=== PATIENT | male | born 1950 | race Caucasian/White ===

== ENCOUNTER 2023-06-15 00:17 | Inpatient (IN) | payer MEDICARE, SELFPAY ==
[2023-06-15] VITALS (10 sets, daily range): BP systolic 106–144; BP diastolic 48–80; PULSE 94–116; RESP 15–24; TEMP 36.4–36.7; O2SAT 96–98
--- NOTE | ~2023-06-15 | US_ITS ---
US scrotum doppler INDICATION: Left testicular trauma. TECHNIQUE: Testicular sonogram utilizing grayscale and color Doppler FINDINGS: The testes are normal in size and appearance. No focal lesions are seen. The right testes measures 5.6 x 2 x 2.5 cm centimeters, and the left testis measures 4.9 x 2.4 x 3 cm cm. There is inc reased vascularity in the left testicle and epididymis which appears enlarged, consistent with epidid ymoorchitis. No discrete testicular mass. There is a right epididymal cyst measuring 11 mm. There is moderate left and small right hydroceles. IMPRESSION: 1. Enlarged heterogeneous left testicle and epididymis with increased vascularity, suspicious for ep ididymoorchitis. No discrete testicular mass. 2: Bilateral hydroceles, left greater than right. Reviewed, dictated and finalized at location A. IMPRESSION: 1. Enlarged heterogeneous left testicle and epididymis with increased vascular ity, suspicious for epididymoorchitis. No discrete testicular mass. 2: Bilateral hydroceles, left greater than right.
--- NOTE | ~2023-06-15 | US_ITS ---
EXAMINATION: US renal BI DATE: 06/17/2023 10:01 INDICATION: Bilateral hydronephrosis. TECHNIQUE: Multiple ultrasound grayscale images of the kidneys were obtained. COMPARISON: CT abdomen and pelvis 06/15/2023 FINDINGS: The right kidney measures 12.1 x 4.7 x 4.9 cm. The left kidney measures 13.5 x 7.0 x 7.9 cm. The kidn eys demonstrate normal parenchymal echogenicity. There is mild left hydronephrosis. The bladder is de compressed by a King catheter. IMPRESSION: 1. Mild left hydronephrosis. Reviewed, dictated and finalized at location E.
--- NOTE | ~2023-06-15 | US_ITS ---
US renal BI 06/15/2023 21:35 Procedure: Realtime transabdominal ultrasound of the kidneys and bladder. Indication: Renal insufficiency. Comparison: CT dated 06/15/2023 Findings: Renal echotexture is normal bilaterally without contour deforming mass or renal calculus. T here is bilateral hydronephrosis. The right kidney measures 12.9 cm and left kidney measures 13.9 cm. There is King catheter in the bladder. Impression: 1: Bilateral hydronephrosis. Reviewed, dictated and finalized at location A. Impression: 1: Bilateral hydronephrosis.
--- NOTE | ~2023-06-15 | XR_ITS ---
EXAMINATION: XR chest 1V portable DATE: 06/15/2023 01:58 INDICATION: Weakness. TECHNIQUE: A single frontal view of the chest was obtained. COMPARISON: CT abdomen and pelvis 06/15/2023 FINDINGS: There is no pneumonia, pleural effusion, or pneumothorax. The heart size is normal. IMPRESSION: 1. No acute cardiopulmonary disease. Reviewed, dictated and finalized at location E.
--- NOTE | ~2023-06-15 | CT_ITS ---
EXAMINATION: CT abdomen pelvis wo con DATE: 06/15/2023 04:42 INDICATION: Urinary tract infection. TECHNIQUE: Computed tomography (CT) of the abdomen and pelvis was performed without intravenous contr ast. Automated exposure control and iterative reconstruction technique were employed. The dose-length product was 1361.28 mGy-cm. COMPARISON: None. FINDINGS: The visualized portions of the lung bases demonstrate mild scarring in paraspinal right low er lobe. No pleural effusion. The heart size is normal. No pericardial effusion. There is a small sli ding hiatal hernia. A calcification in the liver is consistent with old granulomatous disease. The ga llbladder is absent. The spleen, pancreas, adrenal glands, and right kidney are normal. There is mild right hydroureter. There is mild left hydronephrosis and hydroureter. There is no urolithiasis. Blad mahsa wall thickening is noted. The King catheter balloon is in the prosthetic urethra. The prostate i s severely enlarged. There is diverticulosis of the colon without evidence of diverticulitis. There a re no dilated loops of bowel. The appendix is normal. There are no pathologically enlarged lymph node s. There is no free intraperitoneal fluid. There is a small right inguinal hernia containing fat. The re is severe lumbar spondylosis. IMPRESSION: 1. King catheter balloon in the prosthetic urethra. 2. Diffuse bladder wall thickening, which may be secondary to chronic outlet obstruction from the sev erely enlarged prostate. 3. Mild right hydroureter. Mild left hydronephrosis and hydroureter. 4. Small sliding hiatal hernia. Reviewed, dictated and finalized at location E. IMPRESSION: 1. King catheter balloon in the prosthetic urethra. 2. Diffuse bladder wall thickening, which may be secondary to chronic outlet ob struction from the severely enlarged prostate. 3. Mild right hydroureter. Mild left hydronephrosis and hydroureter. 4. Small sliding hiatal hernia.
--- NOTE | ~2023-06-15 | CT_ITS ---
EXAMINATION: CT brain wo con DATE: 06/15/2023 03:33 INDICATION: Head injury. TECHNIQUE: Computed tomography (CT) of the head was performed without intravenous contrast. The mA wa s adjusted according to patient size. Iterative reconstruction technique was employed. The dose-lengt h product was 756.67 mGy-cm. COMPARISON: None FINDINGS: There are scattered areas of low attenuation in the cerebral white matter. There is no intr acranial hemorrhage, acute infarction, or abnormal intracranial mass lesion. The ventricles are ivet l in size. The mastoid air cells are normal. There is mild mucosal thickening in the paranasal sinuse s. There are likely changes of ocular lens replacement surgeries. IMPRESSION: 1. Moderate nonspecific cerebral white matter disease, which likely represents chronic small vessel i schemic disease. Reviewed, dictated and finalized at location E. IMPRESSION: 1. Moderate nonspecific cerebral white matter disease, which likely represents chronic small vessel ischemic disease.
--- NOTE | 2023-06-15 01:17 | ECG_ITS ---
Measurements Intervals Angela Rate: 106 P: -10 CT: 168 QRS: -40 QRSD: 103 T: 57 QT: 328 QTc: 437 Interpretive Statements SINUS TACHYCARDIA WITH OCCASIONAL SUPRAVENTRICULAR PREMATURE COMPLEXES POSSIBLE LEFT ATRIAL ENLARGEMENT [-0.1mV P WAVE IN V1/V2] MARKED LEFT AXIS DEVIATION [QRS AXIS < -30] POSSIBLE INFERIOR MYOCARDIAL INFARCTION , PROBABLY OLD WITH POSTERIOR EXTENSION [30 ms Q WAVE IN II/aVFPROMINENT R WAVE IN V1/ ABNORMAL ECG NO PREVIOUS ECG AVAILABLE FOR COMPARISON Electronically Signed On 06-15-2023 8:51:36 CDT by Major Davenport M.D.
[2023-06-15 01:50] LABS: Basophils Percent Auto 0.2 % (0.2-1.2); Eosinophils Absolute Auto 0.1 K/mm3 (0-0.3); Eosinophils Percent Auto 0.4 % (0-4.4); Hematocrit 30.1 % (42.0-52.0); Hemoglobin 9.6 g/dL (14.0-18.0); Immature Granulocyte Absolute 0.09 K/mm3 (0.00-0.031); Immature Granulocyte Percent A 0.5 % (0-0.5); Lymphocytes Absolute Auto 2.26 K/mm3 (0.9-3.2); Lymphocytes Percent Auto 13.7 % (18.3-44.2); Mean Corpuscular HGB Conc 31.9 g/dl (32-36); Mean Corpuscular Hemoglobin 27.8 pg (26-34); Mean Corpuscular Volume 87.2 fl (80-100); Mean Platelet Volume 8.9 fl (7.4-10.4); Monocytes Absolute Auto 1.4 K/mm3 (0.1-0.6); Monocytes Percent Auto 8.3 % (2.6-8.5); Neutrophils Absolute Auto 12.6 K/mm3 (1.3-6.7); Neutrophils Percent Auto 76.9 % (45.5-73.1); Platelet Count Result 379 k/mm3 (150-375); Red Blood Count 3.45 M/mm3 (4.6-6.20); Red Cell Distribution Width 13.7 % (11.5-14.5); White Blood Count 16.5 K/mm3 (4.5-10.0)
[2023-06-15 02:03] LABS: Alanine Aminotransferase 16 U/L (6-50); Albumin Level 3.8 g/dL (3.5-5.1); Alkaline Phosphatase 111 U/L (38-126); Anion Gap 8 mmol/L (8-16); Aspartate Amino Transferase 24 U/L (17-59); Bilirubin,Total 0.7 mg/dL (0.2-1.3); Blood Urea Nitrogen 21 mg/dL (9-20); Calcium 9.4 mg/dL (8.4-10.2); Carbon Dioxide 28 mmol/L (22-30); Chloride 98 mmol/L (98-107); Estimated Glomerular Filt Rate 40; Glucose 165 mg/dL (65-110); Potassium 3.6 mmol/L (3.4-5.0); Sodium 134 mmol/L (137-145)
[2023-06-15 02:14] LABS: Troponin I < 0.012 ng/mL (0.000-0.034)
[2023-06-15 02:15] LABS: NT Pro B Type Natriuretic Pept 512 pg/mL (19.9-100); Troponin I < 0.012 ng/mL (0.000-0.034)
[2023-06-15 02:16] LABS: Influenza A QL RT-PCR Negative (Negative); Influenza B QL RT-PCR Negative (Negative); RSV RNA, RT-PCR Negative (Negative); SARS-CoV-2 RNA PCR Negative (Negative)
[2023-06-15 02:28] LABS: Appearance Urine Turbid (Clear); Bacteria Urine 1+ /hpf; Bilirubin Urine Negative (Negative); Blood Urine 2+ (Negative); Color Urine Yellow (Yellow); Glucose Urine UA Negative (Negative); Ketones Urine Negative (Negative); Leukocyte Esterase Ur 3+ LEU/UL (Negative); Need Manual Microscopic Reviewed; Nitrate Urine Positive (Negative); Non Pathogenic Casts 0-2; Protein Urine 2+ mg/dL (Negative); RBC Urine 0-2 /hpf (0-2); Specific Grav Ur 1.009 (1.001-1.035); Squamous Epithelial Cell Urine None seen /hpf (Few); Urobilinogen Urine 0.2 mg/dL (<2.0); WBC Clumps Urine Present /HPF; WBC Urine >100 /hpf; pH Urine 6.5 (5.0-9.0)
[2023-06-15 02:29] LABS: Add Urine Microscopic? YES
--- NOTE | 2023-06-15 02:40 | ED.FALL ---
HPI - Fall General Chief Complaint: Fall Stated Complaint: syncope Time Seen by Provider: 06/15/23 00:51 History of Present Illness HPI Narrative: Patient presents to the emergency department after 2 falls at home today. He states he has been weaker than normal. Patient lives alone and uses a walker at baseline. He was leaning forward to get something off of the table when he fell onto the ground. EMS assisted him back and then it happened a second time. The second time he hit his head on the walker. Patient denies current headache. Denies seizure activity. Denies loss of consciousness. Also denies any other injuries. He is primarily concerned with the increased weakness. At baseline he would not expect that he would be able to get off the floor but he is concerned that he fell to begin with Review of Systems Review of Systems: Negative except what is documented in the HPI Exam Narrative: GENERAL: Well-appearing, well-nourished, and in no acute distress. HEAD: Normocephalic, atraumatic. EYES: PERRLA and EOMI. ENT: Nares clear, no rhinorrhea or epistaxis. Mucous membranes moist. NECK: Supple. CHEST: Clear to auscultation. No respiratory distress. HEART: Regular rate and rhythm. ABDOMEN: Soft, nontender, nondistended. EXTREMITIES: Normal range of motion. No edema. SKIN: Warm, dry, no rash. NEURO: No focal deficits. Alert and oriented x3. PSYCH: Normal mood and affect. Course Course Emergency Course: Differential diagnosis includes but not limited to electrolyte abnormality, dehydration, cardiac etiology, infection Vital Signs Vital signs: Vital Signs Temperature 36.7 C 06/15/23 00:28 Pulse Rate 110 H 06/15/23 00:28 Respiratory Rate 15 06/15/23 00:28 Blood Pressure 106/48 L 06/15/23 00:28 Pulse Oximetry 98 06/15/23 00:28 Oxygen Delivery Room Air 06/15/23 00:28 Temperature 36.7 C 06/15/23 00:28 Pulse Rate 110 H 06/15/23 00:28 Respiratory Rate 15 06/15/23 00:28 Blood Pressure 106/48 L 06/15/23 00:28 Pulse Oximetry 98 06/15/23 00:28 Oxygen Delivery Room Air 06/15/23 00:28 MDM - Fall MDM Narrative Medical decision making narrative: UTI likely source of new weakness. IV [address] ordered and negative for any acute intracranial injury. Due to weakness and severity of UTI we will plan for admission for IV antibiotics 0 4:47 AM Patient heart rate persistently tachycardic. CT scan shows stranding around kidney. Patient admitted to hospitalist but due to tachycardia blood cultures added. Patient has been afebrile. Lab Data 06/15/23 01:43 06/15/23 01:43 Labs: Lab Results 06/15/23 06/15/23 06/15/23 Range/Units 01:28 01:43 01:43 WBC 16.5 H (4.5-10.0) K/mm3 RBC 3.45 L (4.6-6.20) M/mm3 Hgb 9.6 L (14.0-18.0) g/dL Hct 30.1 L (42.0-52.0) % MCV 87.2 (80-100) fl MCH 27.8 (26-34) pg MCHC 31.9 L (32-36) g/dl RDW 13.7 (11.5-14.5) % Plt Count 379 H (150-375) k/mm3 MPV 8.9 (7.4-10.4) fl Immature Gran % (Auto) 0.5 (0-0.5) % Neut % (Auto) 76.9 H (45.5-73.1) % Lymph % (Auto) 13.7 L (18.3-44.2) % Henry % (Auto) 8.3 (2.6-8.5) % Eos % (Auto) 0.4 (0-4.4) % Baso % (Auto) 0.2 (0.2-1.2) % Lymph # (Auto) 2.26 (0.9-3.2) K/mm3 Henry # (Auto) 1.4 H (0.1-0.6) K/mm3 Eos # (Auto) 0.1 (0-0.3) K/mm3 Baso # (Auto) 0.0 (0.0-0.1) K/mm3 Abs Immat Gran (auto) 0.09 H (0.00-0.031) K/mm3 Absolute Neuts (auto) 12.6 H (1.3-6.7) K/mm3 Absolute Nucleated RBC 0.0 (0.0-0.012) K/mm3 Nucleated RBC % 0.0 (0.0-0.2) % Sodium 134 L (137-145) mmol/L Potassium 3.6 (3.4-5.0) mmol/L Chloride 98 (98-107) mmol/L Carbon Dioxide 28 (22-30) mmol/L Anion Gap 8 (8-16) mmol/L BUN 21 H (9-20) mg/dL Creatinine 1.70 H (0.7-1.3) mg/dL Estim Creat Clear Calc Not Reportable Estimated GFR 40 L (59 - ) Glucose
[2023-06-15] MEDS: cefTRIAXone 2 GM/NS 100 ML 2 GM/100 ML BAG IVPB (04:20)
[2023-06-15] MEDS: SODIUM CHLORIDE 0.9% IV 1,000 ML 999 ML IV CONT (04:21)
[2023-06-15 06:28] LABS: Lactic Acid Reflex 0.8 mmol/L (0.7-2.0)
[2023-06-15] MEDS: SODIUM CHLORIDE 0.9% IV 1,000 ML 125 ML IV CONT (06:31)
[2023-06-15 07:06] LABS: Glucose Point of Care 172 mg/dl (65-105)
--- NOTE | 2023-06-15 07:45 | PM.IMHP ---
H&P: HPI History of Present Illness Date/Time: 06/15/23 07:45 Chief Complaint: Falls Narrative: 72yo male with DM here for falls. He is alert and oriented but becomes confused about details of his past hx and about the recent falls that prompted this admission. Patient has a history of falls with his last one about 6 months ago; no fractures related to his falls. He also has a chronic Thompson placed about 1 year ago for ?urine retention. More recently, he has had 6 hospitalizations earlier this year at various hospitals for UTIs. He had stents placed in his kidneys and during that time, he had a cardiac stress test that was normal. Patient was feeling weak for the past few days. Patient lives alone. He was walking to the kitchen when his walker went 'sideways' and he fell when trying to re-adjust it. He had his cell phone and contacted EMS since he was unable to get up himself. He refused transfer to the hospital. He denies head injury or LOC. No tongue biting. No chest pain, SOB, palpitations, dizziness or lightheadedness prior to the event. Patient had a 2nd fall when leaning over the coffee table and fell forward striking the right forehead on the floor. Again no chest pain, SOB, palpitations, dizziness or lightheadedness prior to the event. No tongue biting or LOC. He mentioned that he had a syncopal episode to ED provider but patient denies that now. He states he became 'stuck' between the health coach and the coffee table until EMS arrived. No slurred speech when talking with EMS. He denies any recent fever, chills, odynophagia, dysphagia, hearing changes, vision changes, shortness of breath, cough, nausea, vomiting, diarrhea, constipation, abdominal pain. No focal weakness but does feels diffusely weak. No changes in urine color. No cloudy urine or debris in the bag. He mentions that he injured his left testicle when bending over to clam picker something and the testicle was caught under his leg. He denies any history of asthma, emphysema, seizures, strokes, CAD, renal disease or thyroid disease. He was brought to the ED for evaluation. In the ED, he was tachycardic at 110 but otherwise vitals normal. Covid, RSV and influenza negative. EKG showing sinus tachycardia with occasional PACs, marked LAD and possible old IMI. CT Abd/pelvis showing thompson catheter in the prosthetic urethra. Diffuse bladder wall thickening and mild bilateral hydroureter and left hydronephrosis. CXR was clear. CT head showing moderate nonspecific cerebral white matter disease but no acute findings. WBC 16.5K, Hgb 9.6, Cr 1.7, BUN 21. Troponin negative. BNP 512. Lactic 0.8. Total CK normal. UA consistent with UTI. He was given one dose of Rocephin. He was started on IV fluids and admitted for further care. Review of Systems Review of Systems: All systems reviewed & are unremarkable except as noted in HPI and below PMFSH Past Medical History Medical History (Updated 06/15/23 @ 16:11 by Anson Avelar MD) BPH (benign prostatic hyperplasia) Chronic low back pain Diabetes mellitus Essential hypertension Hyperlipidemia Urine retention Chronic Thompson; hx of botox Surgical History Surgical History (Updated 06/15/23 @ 15:45 by Anson Avelar MD) Hx of cataract extraction Hx of cholecystectomy Urostomy stenosis Family History Family History (Updated 06/15/23 @ 15:45 by Anson Avelar MD) Sibling Breast cancer Social History Social History (Updated 06/15/23 @ 15:50 by Anson Avelar MD) Social History: Lives alone. Still working and runs auto salvage. Lifelong nonsmoker. Denies alcohol and drug use and no hx of alcohol or drug use. x2. Full code. He nominates his sister to be the individual who would make medical decisions for him if he is unable. Smoking status: Never smoker Lack of Transportation: No Lack of Food: Never True Current Housing: I Have Housing Concerned About Future Housing: No Difficulty Paying Gas/Electric Bills: N
[2023-06-15 12:58] LABS: Creatine Kinase 89 U/L (55-170)
[2023-06-15 13:02] LABS: Glucose Point of Care 239 mg/dl (65-105)
[2023-06-15] MEDS: TAMSULOSIN HCL 0.4 MG CAPSULE PO (13:15)
[2023-06-15] MEDS: FINASTERIDE 5 MG TABLET PO (13:15)
[2023-06-15] MEDS: ASPIRIN 81 MG CHEWABLE TABLET PO (13:15)
[2023-06-15] MEDS: SERTRALINE HCL 50 MG TABLET PO (13:16)
[2023-06-15] MEDS: INSULIN ASPART (*BKC) 100 UNITS/ML SUB-Q (13:16)
[2023-06-15] MEDS: METOPROLOL SUCCINATE EXT REL 12.5 MG TABCR PO (13:16)
[2023-06-15 14:44] LABS: Creatinine Urine 51.5 mg/dL
[2023-06-15 14:49] LABS: Sodium Urine Random 40 meq/L
[2023-06-15 17:21] LABS: Glucose Point of Care 193 mg/dl (65-105)
[2023-06-15 17:45] LABS: Eosinophil Urine None Seen % (None Seen); Urine Eos QC 2nd Tech Confirmed
[2023-06-15] MEDS: PANTOPRAZOLE 40 MG TABLET PO (17:55)
[2023-06-15] MEDS: ENOXAPARIN 40 MG/0.4 ML SYRINGE SUB-Q (17:55)
[2023-06-15] MEDS: SODIUM CHLORIDE 0.9% IV 1,000 ML 70 ML IV CONT (17:56)
[2023-06-15] MEDS: SIMVASTATIN 20 MG TABLET 40 MG PO (21:25)
[2023-06-15 21:26] LABS: Glucose Point of Care 220 mg/dl (65-105)
[2023-06-15] MEDS: INSULIN GLARGINE (*BKC) 100 UNITS/ML 40 UNITS SUB-Q (21:28)
[2023-06-16] VITALS (10 sets, daily range): BP systolic 107–148; BP diastolic 60–85; PULSE 82–106; RESP 14–20; TEMP 36.4–36.8; O2SAT 98–100
[2023-06-16 08:02] LABS: Glucose Point of Care 176 mg/dl (65-105)
[2023-06-16 08:22] LABS: Basophils Percent Auto 0.2 % (0.2-1.2); Eosinophils Absolute Auto 0.1 K/mm3 (0-0.3); Eosinophils Percent Auto 0.9 % (0-4.4); Hematocrit 28.2 % (42.0-52.0); Immature Granulocyte Absolute 0.06 K/mm3 (0.00-0.031); Immature Granulocyte Percent A 0.5 % (0-0.5); Lymphocytes Absolute Auto 2.06 K/mm3 (0.9-3.2); Lymphocytes Percent Auto 15.7 % (18.3-44.2); Mean Corpuscular HGB Conc 31.9 g/dl (32-36); Mean Corpuscular Hemoglobin 27.9 pg (26-34); Mean Corpuscular Volume 87.3 fl (80-100); Mean Platelet Volume 8.8 fl (7.4-10.4); Monocytes Absolute Auto 1.1 K/mm3 (0.1-0.6); Monocytes Percent Auto 8.1 % (2.6-8.5); Neutrophils Absolute Auto 9.8 K/mm3 (1.3-6.7); Neutrophils Percent Auto 74.6 % (45.5-73.1); Platelet Count Result 387 k/mm3 (150-375); Red Blood Count 3.23 M/mm3 (4.6-6.20); Red Cell Distribution Width 13.4 % (11.5-14.5); White Blood Count 13.1 K/mm3 (4.5-10.0)
[2023-06-16 08:30] LABS: Hemoglobin A1C 7.7 % (<5.7)
[2023-06-16 08:32] LABS: Albumin Level 3.5 g/dL (3.5-5.1); Anion Gap 7 mmol/L (8-16); Blood Urea Nitrogen 18 mg/dL (9-20); Calcium 9.3 mg/dL (8.4-10.2); Carbon Dioxide 28 mmol/L (22-30); Chloride 103 mmol/L (98-107); Estimated CRCL calculation 47 ml/min; Estimated Glomerular Filt Rate 43; Glucose 190 mg/dL (65-110); Magnesium 1.7 mg/dL (1.6-2.3); Phosphorus 3.2 mg/dL (2.5-4.5); Potassium 3.4 mmol/L (3.4-5.0); Sodium 138 mmol/L (137-145)
[2023-06-16] MEDS: PANTOPRAZOLE 40 MG TABLET PO ×2 (08:37→17:56)
[2023-06-16] MEDS: METOPROLOL SUCCINATE EXT REL 12.5 MG TABCR PO (08:37)
[2023-06-16] MEDS: FINASTERIDE 5 MG TABLET PO (08:37)
[2023-06-16] MEDS: SERTRALINE HCL 50 MG TABLET PO (08:37)
[2023-06-16] MEDS: ASPIRIN 81 MG CHEWABLE TABLET PO (08:37)
[2023-06-16] MEDS: TAMSULOSIN HCL 0.4 MG CAPSULE PO (08:37)
[2023-06-16] MEDS: ENOXAPARIN 40 MG/0.4 ML SYRINGE SUB-Q (08:38)
[2023-06-16] MEDS: SODIUM CHLORIDE 0.9% IV 1,000 ML 70 ML IV CONT (08:39)
[2023-06-16 08:40] LABS: Iron 12 ug/dL (49-181)
[2023-06-16 08:50] LABS: Percent Iron Saturation 6 % (20-50)
[2023-06-16 09:38] LABS: Folic Acid 18.8 ng/mL (2.76->20)
[2023-06-16 12:14] LABS: Glucose Point of Care 242 mg/dl (65-105)
[2023-06-16] MEDS: INSULIN ASPART (*BKC) 100 UNITS/ML SUB-Q (12:59)
--- NOTE | 2023-06-16 15:27 | WPDURCON ---
Assessment and Plan Assessment and plan (1) BPH (benign prostatic hyperplasia): Code(s): N40.0 - Benign prostatic hyperplasia without lower urinary tract symptoms Status: Acute Assessment and Plan: Continue with thompson, f/u with Urologist Dr. Sidhu. (2) Urine retention: Code(s): R33.9 - Retention of urine, unspecified Status: Acute Assessment and Plan: Botox given by Urologist, history is very unclear from patient, I suspect this may contribute to his retention. (3) HALLEY (acute kidney injury): Code(s): N17.9 - Acute kidney failure, unspecified Status: Acute Assessment and Plan: Likely d/t catheter displacement, continue to follow. Repeat MINDY tomorrow to ensure hydro is resolved. (4) Urinary tract infection: Qualifiers: Hematuria presence: with hematuria Urinary tract infection type: acute cystitis Qualified Code(s): N30.01 - Acute cystitis with hematuria Code(s): N39.0 - Urinary tract infection, site not specified Status: Acute Assessment and Plan: Cultures pending, continue IV antibiotics, tailor to culture results. (5) Epididymitis, left: Code(s): N45.1 - Epididymitis Status: Acute Assessment and Plan: Continue IV antibiotics, treat with 10-14 days of oral antibiotics. Elevate scrotum and apply ICE. F/U with Urologist. Urology Consult Note HPI Date Seen: 06/16/23 Time Seen: 10:00 Requesting Physician: Jessica Shrestha DO Primary Care Provider: Chong Tanisha Consult Narrative Reason for consult: Epididymitis/UTI/Retention Narrative: Serge Oscar is a 72 year old male who presented to the ER on 06/15/23 s/p 2 falls at home and hitting his head. He has a chronic thompson catheter which is changed monthly at his Urologist or ER if he is at the hospital. He is a patient of Dr. Sidhu who see's him for BPH, Retention and OAB. He doesn't have a very clear health history and it is difficult to understand the timeline of events. However he states his catheter was placed a year ago, but he had Botox 2 months ago d/t having OAB symptoms. He has only had one procedure of Botox injections done. Upon admission he was found to have his catheter placed in his prostatic urethra which was replaced yesterday and is flowing easily to gravity and is a dark yellow color. WBC is 13.1, creatinine is 1.60. A scrotal US was done showing an enlarged left testicle epididymis, bilateral hydroceles and severe BPH. He states he has some pain in the left tesitle and it is swollen from sitting on it. Urine and blood cultures are pending at this time but he is on Ceftriaxone. He is afebrile at this time. Review of Systems Cardiovascular: Cardiovascular: Denies chest pain Respiratory: Respiratory: Reports no additional respiratory complaints Gastrointestinal: Gastrointestinal: Denies abdominal pain, Denies nausea and Denies vomiting Genitourinary: Genitourinary: Denies hematuria, Denies flank pain, Reports testicular pain, Reports urinary frequency, Reports urinary hesitancy and Reports urinary urgency PMFSH Past Medical History Medical History BPH (benign prostatic hyperplasia) Chronic low back pain Diabetes mellitus Essential hypertension Hyperlipidemia Urine retention Chronic Thompson; hx of botox Surgical History Surgical History Hx of cataract extraction Hx of cholecystectomy Urostomy stenosis Family History Family History Sibling Breast cancer Social History Social History Social History: Lives alone. Still working and runs auto salvage. Lifelong nonsmoker. Denies alcohol and drug use and no hx of alcohol or drug use. x2. Full code. He nominates his sister to be the individual who would make m
--- NOTE | 2023-06-16 15:52 | PM.IMPN ---
Progress Note: A&P Assessment and Plan (1) Weakness: Code(s): R53.1 - Weakness Status: Acute Assessment and Plan: Patient has developed weakness over the past few days. B12, Folate and TSH normal. CT the brain shows no acute findings. Chest x-ray is clear. Most likely related to UTI. UCx positive. BCx NGTD. Continue Rocephin. PT and OT. (2) Sepsis: Code(s): A41.9 - Sepsis, unspecified organism Status: Acute Assessment and Plan: Patient meets criteria for sepsis with leukocytosis and tachycardia. Lactic acid level was normal. Blood pressure soft on admission but better controlled now. UCx growing GNB BCx NGTD WBC trending down Stop IV fluids. Continue Rocephin. Follow-up on blood and urine cultures. (3) Epididymitis, left: Code(s): N45.1 - Epididymitis Status: Acute Assessment and Plan: Patient injured his left testicle. US showing enlarged heterogeneous left testicle and epididymis with increased vascularity, suspicious for epididymoorchitis. No discrete testicular mass.Bilateral hydroceles, left greater than right. Urology consulted and recommended abx for epididymitis and ice/lift. Continue Rocephin. Appreciate Urology input (4) Urinary tract infection: Qualifiers: Hematuria presence: with hematuria Urinary tract infection type: acute cystitis Qualified Code(s): N30.01 - Acute cystitis with hematuria Code(s): N39.0 - Urinary tract infection, site not specified Status: Acute Assessment and Plan: UA noted and consistent with UTI. King catheter was in the prostatic urethra. King catheter changed out. MINDY showing bilateral hydronephrosis. Could be related to King obsturction but may be chronic (Bilateral hydro noted by US in October at [facility] and unchanged from Sep 2022). Repeat US in the morning As above. Continue Rocephin (5) Falls: Qualifiers: Encounter type: initial encounter Qualified Code(s): W19.XXXA - Unspecified fall, initial encounter Code(s): W19.XXXA - Unspecified fall, initial encounter Status: Acute Assessment and Plan: Falls related to above. Patient was educated about not bending at the hip to excelsior picker things. Continue PT and OT He is refusing placement. Home with home health tomorrow possibly (6) HALLEY (acute kidney injury): Code(s): N17.9 - Acute kidney failure, unspecified Status: Acute Assessment and Plan: Creatinine is 1.7 on admission. Baseline creatinine unknown. He was in Reg with HALLEY and Cr 1.6 at discharge (but unclear if this improved after discharge) Patient denies any history of renal failure but does have considerable lower urinary tract issues. Does have probably chronic hydronephrosis so chronic renal failure would not be unexpected. He is not on diuretics. Stop IV fluids. Continue to monitor. (7) Urine retention: Code(s): R33.9 - Retention of urine, unspecified Status: Acute Assessment and Plan: Patient with chronic urine retention possibly related to BPH. He did receive Botox at one point. King catheter changed out. As above (8) Diabetes mellitus: Code(s): E11.9 - Type 2 diabetes mellitus without complications Status: Acute Assessment and Plan: A1c 7.7 The patient's blood glucose was reviewed on 06/16 Glucose remains elevated Continue AccuCheks covering with sliding scale. Hypoglycemia protocol available as needed. Continue Lantus but advance (9) Essential hypertension: Code(s): I10 - Essential (primary) hypertension Status: Acute Assessment and Plan: Patient's blood pressure was reviewed on 06/16 Blood pressure remains well controlled. Will continue to monitor (10) BPH (benign prostatic hyperplasia): Code(s): N40.0 - Benign prostatic hyperplasia without lower urinary tract symptoms Status: Acute Ass
[2023-06-16 16:51] LABS: Glucose Point of Care 200 mg/dl (65-105)
[2023-06-16 20:25] LABS: Glucose Point of Care 239 mg/dl (65-105)
[2023-06-16] MEDS: INSULIN GLARGINE (*BKC) 100 UNITS/ML 48 UNITS SUB-Q (20:43)
[2023-06-16] MEDS: SIMVASTATIN 20 MG TABLET 40 MG PO (20:43)
[2023-06-17 06:00] VITALS: BP 110/76; PULSE 108; RESP 18; TEMP 36.3; O2SAT 98
[2023-06-17 07:21] LABS: Basophils Percent Auto 0.2 % (0.2-1.2); Eosinophils Absolute Auto 0.2 K/mm3 (0-0.3); Hematocrit 27.8 % (42.0-52.0); Immature Granulocyte Absolute 0.03 K/mm3 (0.00-0.031); Immature Granulocyte Percent A 0.3 % (0-0.5); Lymphocytes Absolute Auto 1.64 K/mm3 (0.9-3.2); Lymphocytes Percent Auto 16.7 % (18.3-44.2); Mean Corpuscular HGB Conc 32.4 g/dl (32-36); Mean Corpuscular Hemoglobin 27.8 pg (26-34); Mean Corpuscular Volume 85.8 fl (80-100); Mean Platelet Volume 9.1 fl (7.4-10.4); Monocytes Absolute Auto 0.9 K/mm3 (0.1-0.6); Neutrophils Absolute Auto 7.1 K/mm3 (1.3-6.7); Neutrophils Percent Auto 71.8 % (45.5-73.1); Platelet Count Result 413 k/mm3 (150-375); Red Blood Count 3.24 M/mm3 (4.6-6.20); Red Cell Distribution Width 13.3 % (11.5-14.5); White Blood Count 9.8 K/mm3 (4.5-10.0)
[2023-06-17 07:25] LABS: Anion Gap 6 mmol/L (8-16); Blood Urea Nitrogen 18 mg/dL (9-20); Calcium 9.3 mg/dL (8.4-10.2); Carbon Dioxide 28 mmol/L (22-30); Chloride 103 mmol/L (98-107); Estimated CRCL calculation 58 ml/min; Estimated Glomerular Filt Rate 54; Glucose 173 mg/dL (65-110); Potassium 3.1 mmol/L (3.4-5.0); Sodium 137 mmol/L (137-145)
[2023-06-17 08:05] LABS: Glucose Point of Care 167 mg/dl (65-105)
--- NOTE | 2023-06-17 09:05 | P.PNIM_ITS ---
Progress Note: A&P Assessment and Plan (1) Weakness: Code(s): R53.1 - Weakness Status: Acute Assessment and Plan: Patient has developed weakness over the past few days. B12, Folate and TSH normal. CT the brain shows no acute findings. Chest x-ray is clear. Most likely related to UTI. UCx positive. BCx NGTD. Continue Rocephin. PT and OT. (2) Sepsis: Code(s): A41.9 - Sepsis, unspecified organism Status: Acute Assessment and Plan: Patient meets criteria for sepsis with leukocytosis and tachycardia. Lactic acid level was normal. Blood pressure soft on admission but better controlled now. UCx growing GNB BCx NGTD WBC trending down Stop IV fluids. Continue Rocephin. Follow-up on blood and urine cultures. (3) Epididymitis, left: Code(s): N45.1 - Epididymitis Status: Acute Assessment and Plan: Patient injured his left testicle. US showing enlarged heterogeneous left testicle and epididymis with increased vascularity, suspicious for epididymoorchitis. No discrete testicular mass.Bilateral hydroceles, left greater than right. Urology consulted and recommended abx for epididymitis and ice/lift. Continue Rocephin. Appreciate Urology input (4) Urinary tract infection: Qualifiers: Hematuria presence: with hematuria Urinary tract infection type: acute cystitis Qualified Code(s): N30.01 - Acute cystitis with hematuria Code(s): N39.0 - Urinary tract infection, site not specified Status: Acute Assessment and Plan: UA noted and consistent with UTI. King catheter was in the prostatic urethra. King catheter changed out. MINDY showing bilateral hydronephrosis. Could be related to King obsturction but may be chronic (Bilateral hydro noted by US in October at [facility] and unchanged from Sep 2022). Repeat US in the morning As above. Continue Rocephin (5) Falls: Qualifiers: Encounter type: initial encounter Qualified Code(s): W19.XXXA - Unspecified fall, initial encounter Code(s): W19.XXXA - Unspecified fall, initial encounter Status: Acute Assessment and Plan: Falls related to above. 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 Continue PT and OT He is refusing placement. Home with home health tomorrow possibly (6) HALLEY (acute kidney injury): Code(s): N17.9 - Acute kidney failure, unspecified Status: Acute Assessment and Plan: Creatinine is 1.7 on admission. Baseline creatinine unknown. He was in Reg with HALLEY and Cr 1.6 at discharge (but unclear if this improved after discharge) Patient denies any history of renal failure but does have considerable lower urinary tract issues. Does have probably chronic hydronephrosis so chronic renal failure would not be unexpected. He is not on diuretics. Stop IV fluids. Continue to monitor. (7) Urine retention: Code(s): R33.9 - Retention of urine, unspecified Status: Acute Assessment and Plan: Patient with chronic urine retention possibly related to BPH. He did receive Botox at one point. King catheter changed out. As above (8) Diabetes mellitus: Code(s): E11.9 - Type 2 diabetes mellitus without complications Status: Acute Assessment and Plan: A1c 7.7 The patient's blood glucose was reviewed on 06/16 Glucose remains elevated Continue AccuCheks covering with sliding scale. Hypoglycemia protocol available as needed. Continue Lantus but advance
--- NOTE | 2023-06-17 09:14 | PCPTNOTE ---
Patient refused treatment this session due to not feeling like it and being too tired. Educated Pt on importance of working with therapy and getting up. Pt requested therapy to come back later.
[2023-06-17] MEDS: ASPIRIN 81 MG CHEWABLE TABLET PO (09:18)
[2023-06-17] MEDS: FINASTERIDE 5 MG TABLET PO (09:19)
[2023-06-17] MEDS: TAMSULOSIN HCL 0.4 MG CAPSULE PO (09:19)
[2023-06-17] MEDS: PANTOPRAZOLE 40 MG TABLET PO (09:19)
[2023-06-17] MEDS: SERTRALINE HCL 50 MG TABLET PO (09:19)
[2023-06-17] MEDS: ENOXAPARIN 40 MG/0.4 ML SYRINGE SUB-Q (09:23)
[2023-06-17 09:26] VITALS: PULSE 96
[2023-06-17] MEDS: METOPROLOL SUCCINATE EXT REL 12.5 MG TABCR PO (09:26)
[2023-06-17 11:36] LABS: Glucose Point of Care 298 mg/dl (65-105)
[2023-06-17] MEDS: INSULIN ASPART (*BKC) 100 UNITS/ML SUB-Q (12:50)
[2023-06-17 14:00] VITALS: BP 120/50; PULSE 83; RESP 18; TEMP 36.9; O2SAT 98
--- NOTE | 2023-06-17 14:53 | PM.DS ---
DS: Admitting Diagnosis Discharge Date 06/17/23 Admitting Diagnosis Frequent falls DS: Discharge Diagnosis Discharge Diagnosis (1) Weakness: Code(s): R53.1 - Weakness Status: Acute Assessment and Plan: Patient has developed weakness over the past few days. B12, Folate and TSH normal. CT the brain shows no acute findings. Chest x-ray is clear. Most likely related to UTI. UCx positive. BCx NGTD. Continue Rocephin. PT and OT. (2) Sepsis: Code(s): A41.9 - Sepsis, unspecified organism Status: Acute Assessment and Plan: Patient meets criteria for sepsis with leukocytosis and tachycardia. Lactic acid level was normal. Blood pressure soft on admission but better controlled now. UCx growing GNB BCx NGTD WBC trending down Stop IV fluids. Continue Rocephin. Follow-up on blood and urine cultures. (3) Epididymitis, left: Code(s): N45.1 - Epididymitis Status: Acute Assessment and Plan: Patient injured his left testicle. US showing enlarged heterogeneous left testicle and epididymis with increased vascularity, suspicious for epididymoorchitis. No discrete testicular mass.Bilateral hydroceles, left greater than right. Urology consulted and recommended abx for epididymitis and ice/lift. Continue Rocephin. Appreciate Urology input (4) Urinary tract infection: Qualifiers: Hematuria presence: with hematuria Urinary tract infection type: acute cystitis Qualified Code(s): N30.01 - Acute cystitis with hematuria Code(s): N39.0 - Urinary tract infection, site not specified Status: Acute Assessment and Plan: UA noted and consistent with UTI. King catheter was in the prostatic urethra. King catheter changed out. MINDY showing bilateral hydronephrosis. Could be related to King obsturction but may be chronic (Bilateral hydro noted by US in October at [facility] and unchanged from Sep 2022). Repeat US in the morning As above. Continue Rocephin (5) Falls: Qualifiers: Encounter type: initial encounter Qualified Code(s): W19.XXXA - Unspecified fall, initial encounter Code(s): W19.XXXA - Unspecified fall, initial encounter Status: Acute Assessment and Plan: Falls related to above. 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 Continue PT and OT He is refusing placement. Home with home health tomorrow possibly (6) HALLEY (acute kidney injury): Code(s): N17.9 - Acute kidney failure, unspecified Status: Acute Assessment and Plan: Creatinine is 1.7 on admission. Baseline creatinine unknown. He was in Reg with HALLEY and Cr 1.6 at discharge (but unclear if this improved after discharge) Patient denies any history of renal failure but does have considerable lower urinary tract issues. Does have probably chronic hydronephrosis so chronic renal failure would not be unexpected. He is not on diuretics. Stop IV fluids. Continue to monitor. (7) Urine retention: Code(s): R33.9 - Retention of urine, unspecified Status: Acute Assessment and Plan: Patient with chronic urine retention possibly related to BPH. He did receive Botox at one point. King catheter changed out. As above (8) Diabetes mellitus: Code(s): E11.9 - Type 2 diabetes mellitus without complications Status: Acute Assessment and Plan: A1c 7.7 The patient's blood glucose was reviewed on 06/16 Glucose remains elevated Continue AccuCheks covering with sliding scale. Hypoglycemia protocol available as needed. Continue Lantus but advance (9) Essential hypertension: Code(s): I10 - Essential (primary) hypertension Status: Acute Assessment and Plan: Patient's blood pressure was reviewed on 06/16 Blood pressure remains well controlled. Will continue to monitor (10) BPH (benign prostatic hyperplasia): Code(s): N40.0 - Janusz
--- NOTE | 2023-06-17 16:47 | PC.NURSE ---
On 06/17/23, the DAIRY AND FOOD LABORATORY ASSISTANT,Shreya Ramirez, provided care and completed [employer] documentation on this patient. I have reviewed the DAIRY AND FOOD LABORATORY ASSISTANT's documentation and agree with the findings.
--- NOTE | 2023-06-29 14:22 | PCCCNOTE ---
Call received from rep Shreya at [facility] stating they have tried for a week to contact pt and there has been no answer to calls and no call back. They are closing the referral on this patient. Pt discharge disposition is home.
== END 2023-06-17 17:05 | disposition home or self-care (01) | DRG 872 ==
LOC: ANHED 04:48 → ANH3MEDSUR 05:00
PROVIDERS: Internal Medicine; Admitting Provider Internal Medicine; Emergency Provider Emergency Medicine; Visit Provider Student in an Organized Health Care Education/Training Program
DX: N39.0 Urinary tract infection, site not specified (principal); N17.9 Acute kidney failure, unspecified; N13.30 Unspecified hydronephrosis; B96.89 Other specified bacterial agents as the cause of diseases classified elsewhere; A41.9 Sepsis, unspecified organism; D63.8 Anemia in other chronic diseases classified elsewhere; E11.9 Type 2 diabetes mellitus without complications; E78.5 Hyperlipidemia, unspecified; G89.29 Other chronic pain; I10 Essential (primary) hypertension; M54.9 Dorsalgia, unspecified; N45.1 Epididymitis; N40.1 Benign prostatic hyperplasia with lower urinary tract symptoms; R33.8 Other retention of urine; R29.6 Repeated falls; Z20.822 Contact with and (suspected) exposure to COVID-19; Z79.82 Long term (current) use of aspirin; Z79.84 Long term (current) use of oral hypoglycemic drugs; Z79.4 Long term (current) use of insulin; Z98.49 Cataract extraction status, unspecified eye; Z90.49 Acquired absence of other specified parts of digestive tract
CPT/HCPCS: 36415; 70450; 71045; 74176; 76775; 76870; 80048; 80053; 80069; 81001; 82550; 82570; 82607; 82728; 82746; 82948; 83036; 83540; 83550; 83605; 83735; 83880; 84300; 84443; 84484; 85025; 85999; 87040; 87077; 87086; 87186; 87637; 93005; 93976; 96361; 96365; 96372; 96376; 97116; 97161; 97165; 97530; 97535; 99285; A9270; G0378; J0696; J1650; J1815; J7030